=== PATIENT | female | born 1995 | race Caucasian/White ===

== ENCOUNTER 2017-08-23 08:53 | Emergency (ER) | payer BC, MEDICAID ==
[2017-08-23 09:44] VITALS: BP 134/67
--- NOTE | 2017-08-23 12:00 | Emergency Department Report ---
Chief Complaint: Upper Respiratory Infection Stated Complaint: FLU LIKE SYMPTOMS - HPI History of Present Illness: Jailene presents with flu illness. Patient does not have life or limb threatening emergent condition. She was in supportive care instructions. Medical screening exam performed - Exam Vital Signs: Vital Signs 08/23/17 09:41 Temperature 98.2 F Pulse Rate 88 Respiratory 18 Rate Blood Pressure 134/67 O2 Sat by Pulse 100 Oximetry MSE screening note: Focused history and physical exam performed. Due to findings the following was ordered: ED Disposition for MSE Clinical Impression: Influenza Disposition: DC-01 TO HOME OR SELFCARE Is pt being admited?: No Does the pt Need Aspirin: No Condition: Stable Referrals: PRIMARY CARE, [Primary Care Provider] - 3-5 Days Forms: Work/School Release Form(ED)
== END 2017-08-23 12:22 | disposition left against medical advice (07) ==
LOC: ED 08:53
DX: J11.1 Influenza due to unidentified influenza virus with other respiratory manifestations (principal); Z53.21 Procedure and treatment not carried out due to patient leaving prior to being seen by health care provider